=== PATIENT | male | born 1990 ===

== ENCOUNTER 2022-02-14 09:52 | Emergency (ER) | payer SELFPAY ==
[2022-02-14] MEDS ORDERED: Ondansetron 4 MG/2 ML SDV IVPUSH ONE (10:05)
[2022-02-14] MEDS ORDERED: Morphine 4 MG/ML VIAL IVPUSH ONE (10:10)
[2022-02-14] MEDS ORDERED: Propofol 200 MG/20 ML SDV IVPUSH ONE (10:40)
[2022-02-14] MEDS ORDERED: HYDROmorphone 1 MG/ML Syringe IVPUSH ONE (11:23)
== END 2022-02-14 12:20 | disposition home or self-care (01) ==
LOC: MW.ED 09:52
DX: S43.004A Unspecified dislocation of right shoulder joint, initial encounter (principal); X58.XXXA Exposure to other specified factors, initial encounter
CPT/HCPCS: 23650; 73020; 73030; 96374; 96375; 99283; J1170; J2270; J2405; J2704; 23655